=== PATIENT | male | born 1975 | race Caucasian/White ===

== ENCOUNTER → 2023-03-15 07:45 | Outpatient (CLI) | payer SELFPAY ==
--- NOTE | ~2023-03-15 | US_ITS ---
US abdomen limited DATE: 03/15/2023 08:17 INDICATION: Abdominal bloating, generalized abdominal pain. Reflux. TECHNIQUE: Real time imaging of the liver, pancreas, gallbladder` COMPARISON: None FINDINGS: There is hepatic steatosis. No hepatic or pancreatic space-occupying mass lesion is evident . Normal hepatopedal portal venous flow. No gallbladder wall thickening or gallstones are evident. Negative sonographic Cedeno sign. The commo n bile duct measures 3.4 mm, normal. IMPRESSION: Hepatic steatosis Reviewed, dictated and finalized at [facility]. Reviewed, dictated and finalized at [facility]. IMPRESSION: Hepatic steatosis
== END ==
PROVIDERS: PCP Nurse Practitioner; Visit Provider Nurse Practitioner
DX: R14.0 Abdominal distension (gaseous) (principal); K76.0 Fatty (change of) liver, not elsewhere classified
CPT/HCPCS: 76705